=== PATIENT | female | born 1980 | race Caucasian/White ===

== ENCOUNTER 2017-02-09 11:13 | Day surgery (SDC) | payer MEDICARE, OTHER ==
[~2017-02-09] VITALS: Ht 154.9 cm; Wt 86.4 kg
[~2017-02-09 11:13] MED LIST: ACET1TAB40 PO; BEN50 PO; CEPH-443 PO; GABA600T PO; IBUP-1542 PO; LAMO200T18 PO; TRIH5TAB PO; ZIPR80CA22 PO; ZONI100C66 PO
[2017-02-09 12:53] VITALS: Ht 154.9 cm; Wt 86.4 kg
[2017-02-09 13:11] VITALS: BP 109/63; PULSE 55; RESP 17
[2017-02-09] MEDS ORDERED: PROPOFOL 40 ML ONE (13:11)
[2017-02-09] MEDS ORDERED: LIDOCAINE 2% (SDV) 5 ML INJ ONE (13:12)
[2017-02-09] MEDS ORDERED: ALBUTEROL (13:27)
[2017-02-09] MEDS ORDERED: COGENTIN (13:27)
--- NOTE | 2017-02-09 13:32 | OPPN ---
Date/Time of Note Date/Time of Note DATE: 02/09/17 TIME: 13:31 Operative Report Preoperative Diagnosis Vomiting Postoperative Diagnosis Hiatal hernia with reflux esophagitis and erosions Status post gastric sleeve surgery Gastritis with erosions Operation/Procedure Performed Esophagogastroduodenoscopy and biopsy Surgeon see signature line liaison inspection laboratory assistant None Anesthesia: MAC Estimated blood loss: none Transfusion Required none Specimen Gastric mucosal biopsy Grafts/Implants none Complications none PETROS NAJERA MD Feb 09, 2017 13:32
--- NOTE | 2017-02-09 13:49 | GILP ---
DATE OF PROCEDURE: NAME OF PROCEDURES: Esophagogastroduodenoscopy and biopsy. SURGEON: Petros Rivera MD PREOPERATIVE DIAGNOSIS: Vomiting. Status post gastric sleeve surgery. POSTOPERATIVE DIAGNOSES: 1. Hiatal hernia. 2. Reflux esophagitis with erosions. 3. Status post gastric sleeve surgery. 4. Gastritis. 5. Gastric mucosal biopsies were taken for Helicobacter pylori test. INDICATION FOR THE PROCEDURE: Ms. Kanwal Cordova is a 37-year-old female patient who had vomiting after eating. She is status post gastric sleeve surgery done recently. The patient was scheduled f or endoscopic examination for further evaluation. The procedure and possible complications are well explained to the patient. The patient understood and consented to the procedure. DESCRIPTION OF PROCEDURE: Under the influence of anesthesia, the gastroscope was carefully introduc ed into the esophagus and under direct vision it was advanced to the stomach and through the pylorus into the duodenal bulb and descending duodenum. FINDINGS: ESOPHAGUS: The patient had hiatal hernia with reflux esophagitis and erosions. STOMACH: She was status post gastric sleeve surgery. She had gastritis. Gastric mucosal biopsies were taken for H. pylori test. DUODENUM: Normal. She tolerated the procedure very well and there was no complication from the procedure. At the end of the procedures, she was awake with stable vital signs and she was discharged home to the care of her family. IMPRESSION: Please see postoperative diagnosis. PLAN: 1. Pantoprazole 40 mg p.o. q.a.m. 2. Zantac 300 mg p.o. at bedtime. If the patient continues to vomit we will consider upper gastroi ntestinal and small bowel series. Dictated By: PETROS RUSSELL/SANTIAGO Conf#: [id number] DID#: [id number]
[2017-02-09 13:50] VITALS: BP 115/63; RESP 20
--- NOTE | 2017-02-10 12:06 | CONS ---
DATE OF ADMISSION: 02/09/2017 DATE OF CONSULTATION: PATIENT NAME: KANWAL CORDOVA PREOPERATIVE GASTROENTEROLOGY CONSULTATION Dear Dr. Mills: I thank you very much for this kind referral. HISTORY OF PRESENT ILLNESS: Ms. Kanwal Cordova is a 37-year-old female patient who has been referr ed to me for further evaluation of vomiting. The patient states she is not able to eat good because she vomits after eating. She is status post gastric sleeve surgery 6 months ago. She denies any a bdominal pain. No gastrointestinal tract bleeding. She has been losing weight after gastric sleeve surgery. Not on nonsteroidal anti-inflammatory agents. No history of gallstones or liver disease. Patient complains of constipation. No rectal bleeding. There is no past history of colorectal ne oplasm. Not a hypertensive now, she used to have high blood pressure before, but after surgery and weight loss, she is not taking any medication at the present time. Not a diabetic. No heart diseas e. The patient has bronchial asthma. She has history of chronic kidney disease. She has schizophr enia and bipolar disorder. SOCIAL HISTORY: She is a smoker. She also smokes marijuana. No alcohol abuse. FAMILY HISTORY: No family history of gastrointestinal tract neoplasm. DRUG ALLERGIES: NONE. MEDICATIONS: 1. Albuterol inhaler. 2. Geodon. 3. Topamax. 4. Lamictal. 5. Cogentin, patient does not remember the dose. PHYSICAL EXAMINATION: VITAL SIGNS: She is 5 feet 1 inch tall and weighs 193 pounds. BMI 37. Blood pressure 138/92. HEART: Normal heart sounds. LUNGS: Clear. ABDOMEN: Soft. No masses. Normal bowel sounds. NEUROLOGIC: Normal neurological exam. IMPRESSION: 1. Vomiting after eating. 2. Status post gastric sleeve surgery 6 months ago. 3. Constipation. 4. Bronchial asthma. 5. Chronic kidney disease. 6. Schizophrenia and bipolar disorder. 7. The patient is a smoker, and patient also smokes marijuana. 8. HISTORY OF ALLERGY TO SULFA. PLAN: 1. MiraLax 17 grams dissolved in a glass of water p.o. daily for constipation. 2. Endoscopy for further evaluation of vomiting. 3. Because of the obesity with a short thick neck, she needs monitored anesthesia care. The procedure and possible complications were well explained to the patient, she understands and con sents to the procedure. The patient was strongly advised to lose weight. She was also advised to stop smoking. Dietary consultation was recommended. Follow up with the primary MD for the management of elevated BMI and for the habit of smoking. I thank you once again. With warmest personal regards, Dictated By: PETROS NAJERA MD GD/NTS Conf#: [id number] DID#: [id number] CC: LAUREN MILLS MD;*EndCC*
== END 2017-02-09 17:23 | disposition home or self-care (01) ==
LOC: GIL 11:13
PROVIDERS: ATTEND Internal Medicine Gastroenterology
DX: K44.9 Diaphragmatic hernia without obstruction or gangrene (principal); K21.0 Gastro-esophageal reflux disease with esophagitis; K29.70 Gastritis, unspecified, without bleeding; J45.909 Unspecified asthma, uncomplicated; N18.9 Chronic kidney disease, unspecified; F20.9 Schizophrenia, unspecified; Z77.22 Contact with and (suspected) exposure to environmental tobacco smoke (acute) (chronic); Z88.2 Allergy status to sulfonamides
CPT/HCPCS: 84703; 87081

== ENCOUNTER 2017-12-18 08:44 | Emergency (ER) | END 2017-12-18 10:55 | disposition home or self-care (01) ==

== ENCOUNTER 2018-02-05 07:48 | Emergency (ER) | END 2018-02-05 08:54 | disposition home or self-care (01) ==

== ENCOUNTER 2018-08-08 22:41 | Emergency (ER) | payer MEDICARE, OTHER ==
[~2018-08-08] VITALS: Wt 76.0 kg
[~2018-08-08 22:41] MED LIST changes: -ACET1TAB40 PO; +ALBU8.5H8 INH; +ALBUTEROL; -BEN50 PO; -CEPH-443 PO; +COGENTIN; +D-ME473S2 PO; -IBUP-1542 PO; -LAMO200T18 PO; +LAMO200T3 PO; +MED4DP PO; +PRED20TA PO; -TRIH5TAB PO; -ZONI100C66 PO
[2018-08-09] MEDS ORDERED: KETOROLAC 60 MG INJ IM STA (00:51)
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
[2018-08-09] MEDS ORDERED: IBUP800T48 PO (01:33)
[2018-08-09 01:50] VITALS: BP 123/70; PULSE 72; RESP 18
== END 2018-08-09 01:51 | disposition home or self-care (01) ==
LOC: FTE 22:41
DX: S00.83XA Contusion of other part of head, initial encounter (principal); S80.11XA Contusion of right lower leg, initial encounter; S80.12XA Contusion of left lower leg, initial encounter; S40.022A Contusion of left upper arm, initial encounter; S40.021A Contusion of right upper arm, initial encounter; J45.909 Unspecified asthma, uncomplicated; F17.210 Nicotine dependence, cigarettes, uncomplicated; Y04.2XXA Assault by strike against or bumped into by another person, initial encounter
CPT/HCPCS: 81025; 96372; 99284; J1885

== ENCOUNTER 2018-08-30 12:27 | Emergency (ER) | payer MEDICARE, OTHER ==
[~2018-08-30] VITALS: Ht 154.9 cm; Wt 72.0 kg
[~2018-08-30 12:27] MED LIST changes: +IBUP800T48 PO
--- NOTE | 2018-08-30 12:40 | QN ---
Documentation Comment Patient was seen immediately upon arrival as the patient arrived by ambulance. Medical screening exam was initiated. Chief complaint is generalized weakness. She will be sent to triage for vital signs and will be seen by another provider. DIMAS KIRAN MD Aug 30, 2018 12:40
[2018-08-30 12:46] VITALS: BP 136/62; PULSE 92; RESP 18; Ht 154.9 cm; Wt 72.0 kg
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
== END 2018-08-30 17:04 | disposition left against medical advice (07) ==
LOC: FTE 12:27
DX: R53.1 Weakness (principal); F17.210 Nicotine dependence, cigarettes, uncomplicated; J45.909 Unspecified asthma, uncomplicated
CPT/HCPCS: 80053; 85025; 99283

== ENCOUNTER 2018-09-29 10:16 | Emergency (ER) | payer MEDICARE, MEDICAID ==
[~2018-09-29] VITALS: Ht 154.9 cm; Wt 67.0 kg
[2018-09-29 10:23] VITALS: Ht 154.9 cm; Wt 67.0 kg
[2018-09-29] MEDS ORDERED: ONDANSETRON (ODT) 4 MG TAB ODT STA (11:29)
[2018-09-29] MEDS ORDERED: MAGNESIUM CITRATE 300 ML BTL PO ONE ×2 (11:30→13:30)
[2018-09-29] MEDS ORDERED: IBUPROFEN 800 MG TAB PO ONE (13:30)
[2018-09-29] MEDS ORDERED: CEPHALEXIN 500 MG CAP PO ONE (13:30)
[2018-09-29] MEDS ORDERED: METOCLOPRAMIDE 10 MG TAB PO ONE (13:30)
[2018-09-29] MEDS ORDERED: ONDANSETRON 4 MG INJ IV STA (16:22)
[2018-09-29] MEDS ORDERED: FAMOTIDINE 20 MG INJ IV STA (16:22)
[2018-09-29] MEDS ORDERED: SOD CHLORIDE 0.9% 1,000 ML IV STA (16:22)
[2018-09-29] MEDS ORDERED: KETOROLAC 30 MG INJ IV STA (16:22)
[2018-09-29] MEDS ORDERED: METHYLNALTREXONE 12 MG/0.6 ML VIAL SC SCH (16:30)
[2018-09-29] MEDS ORDERED: LAMO200T2 PO (17:25)
[2018-09-29] MEDS ORDERED: GABA-526 PO (17:25)
[2018-09-29] MEDS ORDERED: ZIPR80CA22 PO (17:26)
[2018-09-29] MEDS ORDERED: ESCI20TA PO (17:27)
[2018-09-29] MEDS ORDERED: RANI300T3 PO (17:27)
[2018-09-29] MEDS ORDERED: FAMO40TA5 PO (17:27)
[2018-09-29] MEDS ORDERED: ONDA4TAB14 PO (18:02)
[2018-09-29] MEDS ORDERED: DOCU-144 PO (18:02)
[2018-09-29] MEDS ORDERED: BELLADONNA/PHENOBARBITAL TAB PO STA (18:21)
[2018-09-29] MEDS ORDERED: LIDOCAINE/MYLANTA 40 ML BTL PO STA (18:21)
[2018-09-29 18:41] VITALS: BP 129/79; PULSE 87; RESP 24
--- NOTE | 2018-09-29 20:35 | ERD ---
ER Documentation Chief Complaint Chief Complaint Pt with sonstipation X 2 weeks, small bowel movement today. HPI This is a 38-year-old male that presents to the emergency department states she is been constipated for the past 2 weeks. The patient indicated this morning upon awakening she did have pencillike stool. She is passing gas. She has had multiple episodes of nonbloody nonbilious emesis in the past 24 hours. She has a history of crystal meth use and opiate use. She stated she last used crystal about an hour ago. She denies any abdominal pain. She had no fevers or shaking no chills. She denies any suicidal homicidal thoughts ideations. No previous abdominal surgeries. No hemoptysis no hematemesis no melanotic stools. ROS All systems reviewed and are negative except as per history of present illness. Medications Home Meds Active Scripts Docusate Sodium* (Colace*) 100 Mg Capsule, 100 MG PO TID, #30 CAP Prov:PETER LYMAN MD 09/29/18 Ondansetron (Ondansetron Odt) 4 Mg Tab.rapdis, 4 MG PO Q6H PRN for NAUSEA AND/OR VOMITING, #10 TAB Prov:PETER LYMAN MD 09/29/18 Reported Medications Ranitidine Hcl* (Zantac*) 300 Mg Tablet, 300 MG PO QAM, #30 TAB 09/29/18 Famotidine* (Famotidine*) 40 Mg Tablet, 40 MG PO HS, #30 TAB 09/29/18 Escitalopram Oxalate* (Lexapro*) 20 Mg Tablet, 20 MG PO QHS, #30 TAB 09/29/18 Ziprasidone* (Geodon*) 80 Mg Capsule, 160 MG PO QHS, CAP 09/29/18 Lamotrigine* (Lamotrigine*) 200 Mg Tablet, 200 MG PO QHS, TAB 09/29/18 Gabapentin* (Gabapentin*) 600 Mg Tablet, 600 MG PO TID, #90 TAB 09/29/18 Discontinued Reported Medications [Cogentin] No Conflict Check 02/09/17 [Albuetrol Inhaler] No Conflict Check 02/09/17 Gabapentin* (Neurontin*) 600 Mg Tablet, 600 MG PO TID 10/14/10 Lamotrigine* (Lamictal*) 200 Mg Tablet, 200 MG PO BID 10/14/10 Ziprasidone* (Geodon*) 80 Mg Capsule, 80 MG PO HS 10/14/10 Discontinued Scripts Ibuprofen* (Motrin*) 800 Mg Tab, 800 MG PO Q6H PRN for PAIN AND OR ELEVATED TEMP, #30 TAB Prov:HONG VERGARA PA-C 08/09/18 Methylprednisolone* (Medrol* DOSE PACK) 4 Mg/Dose-Pack Tab.ds.pk, 4 MG PO . DI RECTED for 5 Days, PACKET Prov:KEY BRUCE PA-C 02/05/18 Dextromethorphan Hb-Promethazine Hcl* (Promethazine DM* Syrup) 473 Ml Syrup, 5 ML PO Q6 PRN for COUGH for 7 Days, ML Prov:KEY BRUCE PA-C 02/05/18 Dextromethorphan Hb-Promethazine Hcl* (Promethazine DM* Syrup) 473 Ml Syrup, 5 ML PO Q6 PRN for COUGH for 5 Days, ML Prov:KEY BRUCE PA-C 12/18/17 Albuterol Sulfate* (Proair HFA*) 8.5 Gm Hfa.aer.ad, 2 PUFF INH Q4, #1 INHALER Prov:KEY BRUCE PA-C 12/18/17 Prednisone* (Prednisone*) 20 Mg Tab, 60 MG PO DAILY for 4 Days, TAB Prov:KEY BRUCE PA-C 12/18/17 Allergies Allergies: Coded Allergies: Sulfa (Sulfonamide Antibiotics) (Verified Allergy, Intermediate, 09/29/18) PMhx/Soc Medical and Surgical Hx: pt denies Medical Hx History of Surgery: Yes (Gastric Sleeve,Tubal Ligation,) Anesthesia Reaction: No Hx Neurological Disorder: No Hx Respiratory Disorders: Yes (Bronchial Asthma) Hx Cardiac Disorders: No Hx Psychiatric Problems: Yes (Bipolar D/O;Schizophrenia) Hx Miscellaneous Medical Probl: No Hx Alcohol Use: Yes (drank 'some' 09/28/18) Hx Substance Use: Yes (crystal meth 09/28/18) Hx Tobacco Use: Yes (1 cigarette pack/day) Smoking Status: Current every day smoker Physical Exam Vitals Vital Signs Date Temp Pulse Resp B/P (MAP) Pulse Ox O2 O2 Flow FiO2 Time Delivery Rate 09/29/18 87 24 129/79 99 Room Air 18:41 (96) 09/29/18 60 16 120/72 99 Room Air 18:12 (88) 09/29/18 98.2 76 16 123/83 99 Room Air 16:38 (96) 09/29/18 97.9 68 14 122/75 97 10:23 (91) Physical Exam Constitutional:Well-developed. Well-nourished. HEENT:Normocephalic. Atraumatic.Pupils were 5 mm equal round reactive to light. Dry mucous membranes.No tonsillar exudates. Neck: No nuchal rigidity. No lymphadenopathy. No posterior cervical spine tenderness or step-offs. Respiratory: Not using accessory muscles of respiration.Lungs were clear to auscultation bilaterally. No rhonchi. No rales. No wheezing. Cardiovascular: Regular rate regular rhythm.No murmurs. No rubs were appreciated.S1, S2 normal. Distal pulses are palpable 2+ bilaterally. GI: Abdomen was soft. Mild tenderness in the left lower quadrant. Non Distended. No pulsatile abdominal masses or bruits. No rebound. No guarding. Bowel sounds were present and normal. Muscle skeletal: Full range of motion of both the upper and lower extremities bilaterally.Normal muscle tone.No assymetrical calf tenderness or swelling. Skin: No petechia, no purpura. No lesions on the palms or the soles of the feet. No maculopapular rash. NEURO: Patient was alert, awake, orientated x3.No facial droop. Gait observed and normal with no ataxia.Speech had regular rate and rhythm. No focal neurological deficits. Result Diagram: 09/29/18 1126 09/29/18 1126 Results 24 hrs Laboratory Tests Test 09/29/18 11:26 09/29/18 11:53 White Blood Count 8.1 10^3/ul Red Blood Count 4.71 10^6/ul Hemoglobin 13.6 g/dl Hematocrit 40.6 % Mean Corpuscular Volume 86.2 fl Mean Corpuscular Hemoglobin 28.9 pg Mean Corpuscular Hemoglobin Concent 33.5 g/dl Red Cell Distribution Width 14.0 % Platelet Count 292 10^3/UL Mean Platelet Volume 10.5 fl Immature Granulocytes % 0.100 % Neutrophils % 72.6 % Lymphocytes % 20.5 % Monocytes % 6.7 % Eosinophils % 0.0 % Basophils % 0.1 % Nucleated Red Blood Cells % 0.0 /100WBC Immature Granulocytes # 0.010 10^3/ul Neutrophils # 5.9 10^3/ul Lymphocytes # 1.7 10^3/ul Monocytes # 0.5 10^3/ul Eosinophils # 0.0 10^3/ul Basophils # 0.0 10^3/ul Nucleated Red Blood Cells # 0.0 10^3/ul Urine Color KIMBERLEY Urine Clarity TURBID Urine pH 7.0 Urine Specific [place] 1.021 Urine Ketones 1+ mg/dL Urine Nitrite NEGATIVE mg/dL Urine Bilirubin NEGATIVE mg/dL Urine Urobilinogen 2+ mg/dL Urine Leukocyte Esterase 3+ Tano/ul Urine Microscopic RBC 17 /HPF Urine Microscopic WBC > 182 /HPF Urine Squamous Epithelial Cells FEW /HPF Urine Amorphous Crystals FEW /HPF Urine Bacteria FEW /HPF Urine Mucus MODERATE /HPF Urine Hemoglobin NEGATIVE mg/dL Urine Glucose NEGATIVE mg/dL Urine Total Protein 1+ mg/dl Sodium Level 141 mmol/L Potassium Level 3.9 mmol/L Chloride Level 106 mmol/L Carbon Dioxide Level 27 mmol/L Anion Gap 8 Blood Urea Nitrogen 10 mg/dl Creatinine 0.76 mg/dl Est Glomerular Filtrat Rate mL/min > 60 mL/min Glucose Level 88 mg/dl Calcium Level 9.4 mg/dl Total Bilirubin 0.5 mg/dl Direct Bilirubin 0.00 mg/dl Indirect Bilirubin 0.5 mg/dl Aspartate Amino Transf (AST/SGOT) 21 IU/L Alanine Aminotransferase (ALT/SGPT) 19 IU/L Alkaline Phosphatase 93 IU/L Total Protein 7.6 g/dl Albumin 3.9 g/dl Globulin 3.70 g/dl Albumin/Globulin Ratio 1.05 Lipase 30 U/L POC Beta HCG, Qualitative NEGATIVE Current Medications Medications Dose Sig/Braulio Start Time Status Last (Trade) Ordered Route PRN Stop Time Admin Dose Reason Admin Magnesium 300 ml ONCE ONCE 09/29/18 DC 09/29/18 Citrate PO 11:30 11:16 (Citroma) 09/29/18 11:31 Ondansetron 4 mg ONCE STAT 09/29/18 DC 09/29/18 HCl (Zofran ODT 11:29 11:31 Odt) 09/29/18 11:30 10 mg ONCE ONCE 09/29/18 DC 09/29/18 Metoclopramid PO 13:30 13:31 e HCl 09/29/18 13:31 (Reglan) Magnesium 300 ml ONCE ONCE 09/29/18 DC 09/29/18 Citrate PO 13:30 13:30 (Citroma) 09/29/18 13:31 Cephalexin 500 mg ONCE ONCE 09/29/18 DC 09/29/18 (Keflex) PO 13:30 13:30 09/29/18 13:31 Ibuprofen 800 mg ONCE ONCE 09/29/18 DC 09/29/18 (Motrin) PO 13:30 13:30 09/29/18 13:31 12 mg ONCE SC 09/29/18 DC 09/29/18 Methylnaltrex 16:30 16:20 one [place] 09/29/18 18:43 (Relistor) Sodium 1,000 ml @ Q1H STAT 09/29/18 DC 09/29/18 Chloride 1,000 mls/hr IV 16:22 16:34 09/29/18 17:21 Ondansetron 4 mg ONCE STAT 09/29/18 DC 09/29/18 HCl (Zofran IV 16:22 16:34 Inj) 09/29/18 16:25 Famotidine 20 mg ONCE STAT 09/29/18 DC 09/29/18 (Pepcid Iv) IV 16:22 16:34 09/29/18 16:25 Ketorolac 30 mg ONCE STAT 09/29/18 DC 09/29/18 Tromethamine IV 16:22 16:34 (Toradol) 09/29/18 16:25 40 ml ONCE STAT 09/29/18 DC 09/29/18 Miscellaneous PO 18:21 18:26 Medication 09/29/18 18:23 (Gi Cocktail (2)) Belladonna/ 2 tab ONCE STAT 09/29/18 DC 09/29/18 Phenobarbital PO 18:21 18:26 () 09/29/18 18:23 Procedures/MDM This is a 38-year-old female presented to the emergency department with constipation for roughly 2 weeks. The patient had mild abdominal tenderness. The patient also has a toxic syndrome that was consistent with amphetamine use. IV access was established and she did receive a liter bolus of normal saline she also showed signs of clinical dehydration. I obtained a KUB that was concerning for possible ileus with air-fluid levels. However clinical impression was not suggestive of a small bowel obstruction. The patient underwent a CT scan which indicated the followin. Nonspecific fluid filled loops of small bowel without significant distension may represent gastroenteritis. 2. Moderate amount of stool is seen throughout the colon. 3. Question of 4 mm cyst in the right adnexa, likely dominant follicle. Co nsider further evaluation with pelvic ultrasound. 4. Status post bariatric gastric surgery with no evidence of obstruction. 5. Trace free pelvic fluid likely physiologic. Given that the patient had also been using opiates this could be result of opiate-induced constipation the patient received Relistor after given milk of magnesium without a bowel movement. She was given IV fluids and Toradol. She did not have any reproducible tenderness after receiving the anti- inflammatories. My clinical suspicion was low for small bowel obstruction as the patient was expressing flatulence and was able to tolerate oral intake at the time of discharge. The patient was discharged home in fair condition. They were instructed to return to the emergency department at any time if there was any worsening of their condition. The patient stated they would follow up with their PCP in the next 24-48 hours to initiate a suitable medication regimen under the care of their PCP as well as to allow their PCP to monitor any drug reactions. The patient was discharged home with prescriptions after they gave in formed consent to the new medication. They were also fully informed by myself on the adverse effects and adverse drug interactions in order to provide adequate safeguards to prevent possible adverse reactions to medications. Departure Diagnosis: Primary Impression: Constipation Constipation type: unspecified constipation type Qualified Codes: K59.00 - Constipation, unspecified Additional Impressions: Vomiting Vomiting type: unspecified Vomiting Intractability: non-intractable Nausea presence: with nausea Qualified Codes: R11.2 - Nausea with vomiting, unspecified Amphetamine abuse Condition: Fair Patient Instructions: Constipation (Adult), Vomiting (6Y-Adult) Referrals: INDIA PINA MD (PCP) PETER LYMAN MD Sep 29, 2018 20:35
== END 2018-09-29 18:43 | disposition home or self-care (01) ==
LOC: FTE 10:16 → E/R 18:43
DX: K59.00 Constipation, unspecified (principal); F17.210 Nicotine dependence, cigarettes, uncomplicated; F15.10 Other stimulant abuse, uncomplicated; R11.2 Nausea with vomiting, unspecified
CPT/HCPCS: 36415; 74019; 74176; 80053; 81001; 81025; 83690; 85025; 96372; 96374; 96375; 99285; J1885; J2405; J7030

== ENCOUNTER 2018-10-01 04:12 | Emergency (ER) | payer MEDICARE, MEDICAID ==
[~2018-10-01] VITALS: Ht 154.9 cm; Wt 67.2 kg
[~2018-10-01 04:12] MED LIST changes: -ALBU8.5H8 INH; -ALBUTEROL; -COGENTIN; -D-ME473S2 PO; +DOCU-144 PO; +ESCI20TA PO; +FAMO40TA5 PO; +GABA-526 PO; -GABA600T PO; -IBUP800T48 PO; +LAMO200T2 PO; -LAMO200T3 PO; -MED4DP PO; +ONDA4TAB14 PO; -PRED20TA PO; +RANI300T3 PO
[2018-10-01 04:15] VITALS: Ht 154.9 cm; Wt 67.2 kg
[2018-10-01] MEDS ORDERED: SOD CHLORIDE 0.9% 1,000 ML IV STA (04:38)
--- NOTE | 2018-10-01 04:40 | ERD ---
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 HPI 38-year-old woman complains of syncopal episode earlier today and suprapubic discomfort, she was seen and evaluated here about 2 days ago for vomiting and constipation and work-up was unremarkable and she was discharged. Prior to discharge she was given a dose of cephalexin for possible UTI but she states she was not given prescriptions. She denies head or neck injury, no chest pain or shortness of breath, no fevers or chills, no back pain, no headache or blurry vision. Patient was triaged as having chest pain although she denies this during my HPI. She does admit to using methamphetamine 1 to 2 days ago. ROS All systems reviewed and are negative except as per history of present illness. Medications Home Meds Active Scripts Cephalexin* (Keflex*) 500 Mg Capsule, 500 MG PO QID for 7 Days, CAP Prov:JOYCE ZAMBRANO MD 10/01/18 Docusate Sodium* (Colace*) 100 Mg Capsule, 100 MG PO TID, #30 CAP Prov:PETER LYMAN MD 09/29/18 Ondansetron (Ondansetron Odt) 4 Mg Tab.rapdis, 4 MG PO Q6H PRN for NAUSEA AND/OR VOMITING, #10 TAB Prov:PETER LYMAN MD 09/29/18 Reported Medications Ranitidine Hcl* (Zantac*) 300 Mg Tablet, 300 MG PO QAM, #30 TAB 09/29/18 Famotidine* (Famotidine*) 40 Mg Tablet, 40 MG PO HS, #30 TAB 09/29/18 Escitalopram Oxalate* (Lexapro*) 20 Mg Tablet, 20 MG PO QHS, #30 TAB 09/29/18 Ziprasidone* (Geodon*) 80 Mg Capsule, 160 MG PO QHS, CAP 09/29/18 Lamotrigine* (Lamotrigine*) 200 Mg Tablet, 200 MG PO QHS, TAB 09/29/18 Gabapentin* (Gabapentin*) 600 Mg Tablet, 600 MG PO TID, #90 TAB 09/29/18 Discontinued Reported Medications [Cogentin] No Conflict Check 02/09/17 [Albuetrol Inhaler] No Conflict Check 02/09/17 Gabapentin* (Neurontin*) 600 Mg Tablet, 600 MG PO TID 10/14/10 Lamotrigine* (Lamictal*) 200 Mg Tablet, 200 MG PO BID 10/14/10 Ziprasidone* (Geodon*) 80 Mg Capsule, 80 MG PO HS 10/14/10 Discontinued Scripts Ibuprofen* (Motrin*) 800 Mg Tab, 800 MG PO Q6H PRN for PAIN AND OR ELEVATED TEMP, #30 TAB Prov:HONG VERGARA PA-C 08/09/18 Methylprednisolone* (Medrol* DOSE PACK) 4 Mg/Dose-Pack Tab.ds.pk, 4 MG PO . DIRECTED for 5 Days, PACKET Prov:KEY BRUCE PA-C 02/05/18 Dextromethorphan Hb-Promethazine Hcl* (Promethazine DM* Syrup) 473 Ml Syrup, 5 ML PO Q6 PRN for COUGH for 7 Days, ML Prov:KEY BRUCE PA-C 02/05/18 Dextromethorphan Hb-Promethazine Hcl* (Promethazine DM* Syrup) 473 Ml Syrup, 5 ML PO Q6 PRN for COUGH for 5 Days, ML Prov:KEY BRUCE PA-C 12/18/17 Albuterol Sulfate* (Proair HFA*) 8.5 Gm Hfa.aer.ad, 2 PUFF INH Q4, #1 INHALER Prov:KEY BRUCE PA-C 12/18/17 Prednisone* (Prednisone*) 20 Mg Tab, 60 MG PO DAILY for 4 Days, TAB Prov:KEY BRUCE PA-C 12/18/17 Allergies Allergies: Coded Allergies: Sulfa (Sulfonamide Antibiotics) (Verified Allergy, Intermediate, 10/01/18) PMhx/Soc Obesity, drug abuse History of Surgery: Yes (Gastric Sleeve,Tubal Ligation,) Anesthesia Reaction: No Hx Neurological Disorder: No Hx Respiratory Disorders: Yes (Bronchial Asthma) Hx Cardiac Disorders: No Hx Psychiatric Problems: Yes (Bipolar D/O;Schizophrenia) Hx Miscellaneous Medical Probl: No Hx Alcohol Use: Yes (drank 'some' 09/28/18) Hx Substance Use: Yes (crystal meth 09/30/18) Hx Tobacco Use: Yes (1 cigarette pack/day) Smoking Status: Current every day smoker FmHx Family History: No diabetes Physical Exam Vitals Vital Signs Date Temp Pulse Resp B/P (MAP) Pulse Ox O2 O2 Flow FiO2 Time Delivery Rate 10/01/18 71 16 135/86 98 Room Air 05:33 (102) 10/01/18 96.6 71 16 139/65 97 04:15 (89) Physical Exam GENERAL: Well-developed, well-nourished, well-hydrated, in no apparent distress, looks nontoxic in appearance HEENT: Moist mucous membranes, pink conjunctiva, no cervical spine tenderness or step-off deformities, no goiter, no jaundice or icterus, extraocular movements intact without pain. No submandibular induration, and no pharyngeal erythema NEURO: Alert and oriented 3, cranial nerves II through XII intact bilaterally, pupils equal round reactive to light, no focal deficits or facial asymmetry, sensation intact distally Strength 5/5 in upper and lower extremities bilaterally CARDIAC: Regular rate and rhythm, no murmurs rubs or gallops LUNGS: Clear bilaterally no wheezing crackles or stridor ABDOMEN: Soft nontender, no guarding, no rigidity, no rebound, no psoas sign no obturator sign. Normoactive bowel sounds SKIN: Warm and dry to touch, no abrasions, contusions, or hematomas, no lacerations, no ecchymosis, no target lesions, and without ulcers EXTREMITIES: No clubbing cyanosis or edema, calves are bilaterally symmetrical, no Homans sign, no popliteal cord sign. Distal pulses equal and bilateral PSYCH: Normal affect without agitation or irritability Results 24 hrs Current Medications Medications Dose Sig/Braulio Start Time Status Last (Trade) Ordered Route PRN Stop Time Admin Dose Reason Admin Ceftriaxone 50 ml @ ONCE ONCE 10/01/18 DC 10/01/18 Sodium 100 mls/hr IVPB 05:00 04:58 10/01/18 05:29 Sodium 1,000 ml @ Q1H STAT 10/01/18 DC 10/01/18 Chloride 1,000 mls/hr IV 04:38 04:58 10/01/18 05:37 Procedures/MDM IV line was established patient was placed on line pilot rhythm strip revealed a sinus rhythm at about 60 bpm with upright P and T waves. Patient was afebrile EKG performed, read by me revealed a normal sinus rhythm at 61 bpm, normal axis, narrow QRS complex, no concerning ST elevations or depressions noted test was negative, urinalysis was positive for infection. I treated her here with ceftriaxone 1 g IV. Patient was seen and evaluated here 2 days ago for vomiting and constipation and the CT scan of the abdomen pelvis was performed at that time and was unremarkable. Differential diagnoses considered, included but not limited to acute coronary syndrome, pulmonary embolism, aortic dissection, abdominal aortic aneurysm, sepsis, stroke, meningitis, encephalitis, pneumonia, appendicitis, cholecystitis, bowel obstruction, pyelonephritis, nephrolithiasis, cystitis, as well as metabolic, hematologic, and electrolyte abnormalities. As well as abscess, cellulitis, fractures, and dislocations. Patient feels much better at this time, and vital signs are normal, symptoms have improved. I did give strict instructions to return to the ED if symptoms continue or worsen, patient will otherwise follow-up with primary care physician. Patient understood instructions and agreed to plan. Disclaimer: Inadvertent spelling and grammatical errors are likely due to EHR/dictation software use and do not reflect on the overall quality of patient care. Also, please note that the electronic time recorded on this note does not necessarily reflect the actual time of the patient encounter. Departure Diagnosis: Primary Impression: Syncope Syncope type: unspecified Qualified Codes: R55 - Syncope and collapse Additional Impressions: Acute UTI Methamphetamine abuse Condition: JOYCE Baptiste MD Oct 01, 2018 04:40
[2018-10-01] MEDS ORDERED: CEPH-443 PO (04:43)
[2018-10-01] MEDS ORDERED: CEFTRIAXONE 1 GM/50 ML (PMX) 50 ML IVPB ONE (05:00)
[2018-10-01 05:33] VITALS: BP 135/86; PULSE 71; RESP 16
== END 2018-10-01 05:38 | disposition home or self-care (01) ==
LOC: E/R 04:12
DX: N39.0 Urinary tract infection, site not specified (principal); F15.10 Other stimulant abuse, uncomplicated; F17.210 Nicotine dependence, cigarettes, uncomplicated
CPT/HCPCS: 93005; 96374; 99284; J0696; J7030